=== PATIENT | female | born 1980 ===

== ENCOUNTER 2019-10-09 10:01 | Emergency (ER) | payer OTHER ==
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
--- NOTE | 2019-10-09 11:10 | CR ---
Left second finger: 3 views centered to the left second finger were obtained. Soft tissue swelling appears to be present. No acute fracture, dislocation or other bony abnormality is appreciated. No erosive change is seen. Impression: 1. Soft tissue swelling. No acute bony abnormality is appreciated. Diagnostic code #2 This report was dictated in MDT
[2019-10-09 16:24] VITALS: BP 120/70; PULSE 73
== END 2019-10-09 11:39 | disposition home or self-care (01) ==
LOC: MW.ED 10:01
DX: B08.02 Orf virus disease (principal); Z87.891 Personal history of nicotine dependence; Z88.2 Allergy status to sulfonamides; Z88.1 Allergy status to other antibiotic agents
CPT/HCPCS: 73140-26-F1; 73140-F1; 99282; 99283

== ENCOUNTER 2023-12-25 13:56 | Emergency (ER) | payer SELFPAY ==
[2023-12-25] MEDS: Iopamidol 755 MG/ML 500 ML Multipack Bottle IVPUSH STA (14:13)
[2023-12-25 14:25] LABS: BASOPHILS ABSOLUTE AUTO 0.05 K/uL (0.00-0.20); BASOPHILS PERCENT AUTO 0.7 % (0.0-1.0); EOSINOPHILS ABSOLUTE AUTO 0.28 K/uL (0.00-0.45); EOSINOPHILS PERCENT AUTO 3.9 % (0.0-6.0); HEMATOCRIT 37.3 % (37.0-47.0); HEMOGLOBIN 12.4 g/dL (12.0-16.0); IMMATURE GRAN ABSOLUTE AUTO 0.02 K/uL (0.00-0.05); IMMATURE GRAN PERCENT AUTO 0.3 % (0.0-0.4); LYMPHOCYTES ABSOLUTE AUTO 2.07 K/uL (1.00-4.80); LYMPHOCYTES PERCENT AUTO 28.7 % (24.0-44.0); MEAN CORPUSCULAR HEMOGLOBIN 30.4 pg (28.0-32.0); MEAN CORPUSCULAR HGB CONC 33.2 g/dL (32.0-36.0); MEAN CORPUSCULAR VOLUME 91.4 fL (83.0-99.0); MONOCYTES ABSOLUTE AUTO 0.62 K/uL (0.00-0.80); MONOCYTES PERCENT AUTO 8.6 % (0.0-8.0); NEUTROPHILS ABSOLUTE AUTO 4.17 K/uL (1.80-7.70); NEUTROPHILS PERCENT AUTO 57.8 % (41.0-71.0); PLATELET COUNT,PLT 279 K/uL (150-400); RED BLOOD CELL COUNT 4.08 M/uL (4.10-5.30); WHITE BLOOD CELL COUNT,WBC 7.21 K/uL (3.9-11.3)
[2023-12-25 14:43] LABS: INR 0.99 (0.86-1.11); PTT,PARTIAL THROMBOPLSTIN TIME 25.6 SEC (23.9-30.7)
[2023-12-25 14:57] LABS: ALBUMIN 3.6 g/dL (3.4-5.0); BILIRUBIN TOTAL 0.3 mg/dL (0.2-1.0); CALCIUM 8.8 mg/dL (8.5-10.1); CARBON DIOXIDE,CO2 21.7 mmol/L (21.0-32.0); CREATININE 0.9 mg/dL (0.6-1.0); EST CRCL DRUG DOSING (CG) 76.23 mL/min; POTASSIUM,K 3.6 mmol/L (3.5-5.1); PROTEIN TOTAL,TP 7.3 g/dL (6.4-8.2)
[2023-12-25] MEDS: Ibuprofen 800 MG Tab PO STA (15:11)
[2023-12-25] MEDS: Acetaminophen 500 MG Tab PO STA (15:11)
[2023-12-25 15:51] VITALS: BP 131/95; PULSE 95
== END 2023-12-25 15:49 | disposition home or self-care (01) ==
LOC: MW.ED 13:56
DX: G51.0 Bell's palsy (principal); Z79.899 Other long term (current) drug therapy; Z90.49 Acquired absence of other specified parts of digestive tract; Z88.2 Allergy status to sulfonamides; Z88.0 Allergy status to penicillin; Z88.1 Allergy status to other antibiotic agents; Z88.8 Allergy status to other drugs, medicaments and biological substances; Z75.8 Other problems related to medical facilities and other health care
CPT/HCPCS: 36415; 70450; 70496; 70498; 80053; 84703; 85025; 85610; 85730; 93005; 96374; 99284; A9270; J1100; Q9967